=== PATIENT | male | born 2000 | race Caucasian/White ===

== ENCOUNTER 2021-04-04 14:38 | Emergency (ER) | payer BC ==
[2021-04-04 15:02] VITALS: BP 109/86
--- NOTE | 2021-04-04 17:26 | ED Physician Documentation ---
History of Present Illness - Stated complaint Stated Complaint: SINUS PX/VOMITING - Chief complaint Chief Complaint: Heent - Additonal information Additional information: 21-year-old male here with acute sinus congestion and pain that began today. He had noted that he felt nauseated and had pain behind his right maxillary sinus. He got concerned because he did have a nosebleed. This is in the setting of taking doxycycline for recent tick bite. He has about 5 days left of the doxycycline. He reports that he has watery eyes and runny nose. He thinks he may have allergies. He feels better than when he initially presented. Review of Systems Constitutional: denies: Fever, Chills Eyes: reports: Reviewed and negative Ears: reports: Reviewed and negative Nose: reports: Rhinorrhea / runny nose, Congestion, Epistaxis Throat: reports: Reviewed and negative Cardiac: reports: Reviewed and negative Respiratory: reports: Reviewed and negative GI: reports: Reviewed and negative : reports: Reviewed and negative PD PAST MEDICAL HISTORY - Allergies Allergies/Adverse Reactions: Allergies Allergy/AdvReac Type Severity Reaction Status Date / Time No Known Drug Allergies Allergy Verified 04/04/21 15:01 PD ED PE EXPANDED - General General: Alert, No acute distress - HEENT HEENT: Atraumatic, PERRL, Ears normal, Moist mucous membranes, Pharynx normal, Pharyngeal erythema. No: Swollen tonsils, Tonsillar exudate - Neck Neck: Supple w/out meningeal sx. No: Adenopathy - Cardiac Cardiac: Regular Rate, Radial strong equal, Pedal strong equal, Cap refill < 2 sec - Respiratory Respiratory: Clear to ausultation virgil. No: Distress, Labored - Abdomen Abdomen: Normal Bowel sounds, Tender to palpation Results - Vitals Vitals: Vital Signs - 24 hr 04/04/21 14:56 Temperature 36.5 C Heart Rate 92 Respiratory 16 Rate Blood Pressure 109/86 H O2 Saturation 99 Oxygen O2 Source Room air PD MEDICAL DECISION MAKING - ED course Complexity details: reviewed results, re-evaluated patient, d/w patient, d/w family ED course: 21-year-old male here with acute sinus congestion and pain that began today. Currently on doxycycline for a tick bite. He has no fevers. Since arrival to the emergency department he has defervesced and blowing his nose quite a bit and now the pain has resolved. I have recommended to the patient that he take Flonase as I suspect seasonal allergies may be contributing versus cetirizine. Emergent return precautions discussed for worsening symptoms. Departure - Departure Disposition: 01 Home, Self Care Clinical Impression: Sinus congestion Condition: Stable Record reviewed to determine appropriate education?: Yes Instructions: ED Sinusitis No Abx Comments: Yoel I think that right now you have some allergies given the new environment that may be causing the congestion and pressure. He would do well to take a decongestion or use Flonase or cetirizine allergy medication. If at any point you have worsening symptoms, develop fevers, facial swelling or difficulty breathing please return immediately to the ER
== END 2021-04-04 17:31 | disposition home or self-care (01) ==
LOC: ED 14:38
DX: J34.89 Other specified disorders of nose and nasal sinuses (principal)
CPT/HCPCS: 99281; 99284